=== PATIENT | female | born 1970 | race Caucasian/White ===

== ENCOUNTER 2025-06-14 08:04 | Outpatient (CLI) | payer OTHER, SELFPAY ==
--- NOTE | ~2025-06-14 | DEXA_ITS ---
Bone Density Report Name: ANMOL GURROLA Age: 55 Sex: Female Ethnicity: White Date of : 1970 Indication: postmenopausal; screening for osteoporosis; height loss; Referring Provider: LORNE HERNANDEZ Study: Bone densitometry was performed. Exam Date: June 14, 2025 Accession number: [id number] Bone Density: Region BMD T-score Z-score Classification AP Spine(L1-L4) 1.170 1.1 2.3 Normal Femoral Neck (Left) 0.859 0.1 1.2 Normal Total Hip (Left) 1.001 0.5 1.3 Normal Femoral Neck (Right) 0.864 0.1 1.3 Normal Total Hip (Right) 0.951 0.1 0.9 Normal Total Hip Mean 0.976 0.3 1.1 Normal World Health Organization criteria for BMD impression classify patients as: Normal (T-score at or above -1.0), Osteopenia (T-score between -1.0 and -2.5), or Osteoporosis (T-score at or below -2.5). 10-year Fracture Risk: FRAX not reported because: All T-scores for Spine Total, Hip Total, Femoral Neck at or above -1.0 Clinical Information Provided by Patient: Has used the following medications: Vitamin D Patient maximum height was 67 Menopause Age: 50 No regular weight bearing exercise Drinks caffeinated beverages Onset of menses at age 11 Number of children 0 Impression: The patient has normal bone mass. Discussion: BONE DENSITY IS ABOVE THE MINIMUM DESIRABLE LEVEL AT ALL SKELETAL SITES TESTED. This patient?s bone mineral density is above the minimum desirable level (T-score -1.0 or better) at all sites measured. The patient should follow a healthful lifestyle (good nutrition with adequate calcium and vitamin D, and appropriate weight-bearing exercise). Follow-Up: Consider repeating this study in 5 years or sooner if there is some new clinical indication. Reported by: RODRIGO on 06/14/2025 8:25:00 AM. Reviewed, dictated and finalized at location A.
== END 2025-06-14 08:05 | disposition home or self-care (01) ==
LOC: MICIMG 08:05
PROVIDERS: PCP Obstetrics & Gynecology Gynecology; Visit Provider Obstetrics & Gynecology Gynecology
DX: Z13.820 Encounter for screening for osteoporosis (principal); Z78.0 Asymptomatic menopausal state
CPT/HCPCS: 77080